=== PATIENT | male | born 1965 | race Caucasian/White ===

== ENCOUNTER 2021-05-05 10:37 | Emergency (ER) | payer OTHER, SELFPAY ==
[2021-05-05 10:42] VITALS: BP 144/92; PULSE 97; O2SAT 98
--- NOTE | 2021-05-05 10:48 | ED_ITS ---
HPI - Overdose General Chief Complaint: ETOH/Substance Use Stated Complaint: OD,NARCAN GIVEN W/GOOD RESULT Time Seen by Provider: 05/05/21 10:48 Source: patient Mode of arrival: EMS Limitations: no limitations History of Present Illness MD complaint: accidental overdose Onset (ago): minute(s) How Overdose Was Discovered: other (was with friends) Context: Accidental Overdose: wanted to get high Associated symptoms: nausea/vomiting Treatments Prior to Arrival: narcan (4mg IN narcan ) Related Data Allergies Allergy/AdvReac Type Severity Reaction Status Date / Time No Known Allergies Allergy Verified 05/05/21 11:07 Review of Systems Review of Systems: Constitutional : No Fever, pos Chills ENT/Mouth : No Ear Pain, No Nasal Congestion, No sore throat Eyes: No Eye Pain, No Swelling, No Redness Cardiovascular : No Chest Pain, No SOB Respiratory : No Cough, No Sputum, No Dyspnea Gastrointestinal :pos Nausea, posVomiting, No Diarrhea, No Hematochezia, No Melena Genitourinary : No Dysuria, No Urinary Frequency, No Hematuria Musculoskeletal : No Myalgias Skin : No Skin Lesions, No rash Neuro : No Weakness, No Numbness, No Paresthesias, No Dizziness, No Headache Psych : positive Anxiety, no Depression, no SI/HI Heme/Lymph: No Lymphadenopathy Endocrine : No Polyuria, No Polydipsia All other systems reviewed and are negative [facility], [facility] Past Medical History Attestation statement: The following information was validated with the patient. Medical History Substance abuse Social History Social History (Updated 05/05/21 @ 11:33 by Rita You DO) Patient Tobacco Use Status: Current someday Tobacco user Substance Use Type: Heroin Advance Directives: No Advance Directives Information Provided: No Physical Exam Vital Signs: Vital Signs: Last Vital Signs Pulse 98 05/05/21 10:53 Resp 16 05/05/21 10:53 BP 125/89 05/05/21 10:53 Pulse Ox 98 05/05/21 10:53 BMI result Body Mass Index 25.0 Appearance: Alert. Oriented X3. No acute distress. Anxious nausea Eyes: Pupils equal, round and reactive to light. ENT: Pharynx normal. Neck: Normal inspection. Neck supple. CVS: Normal heart rate and rhythm. Pulses normal. Respiratory: No respiratory distress. Breath sounds normal. Abdomen: Soft and non-tender. Skin: Skin warm and dry. Normal skin color. Normal skin turgor. Extremities: No lower extremity edema. No calf ttp Neuro: Oriented X 3. No motor deficit. No sensory deficit. Course Course Course Narrative: possible bed at [facility] in [place] signed out pending bed MDM - Overdose MDM Narrative Medical decision making narrative: 56 yo male with opiate abuse from [place] notes he was with friends and was using heroin and accidental overdose - at this time he has no SI, he is calm and cooperative but c/o n/v will give zofran and narcan to take home. He does want to go to detox at this time. Will offer recovery coaches. Discharge Plan Discharge Clinical Impression: Opiate overdose Patient Disposition: Still a Patient Transfer Details: [facility] Instructions: Adult Overdose (ED) Additional Instructions: return to ED for any worsening symptoms or concerns please go to detox
[2021-05-05 10:53] VITALS: BP 125/89; PULSE 98; RESP 16; O2SAT 98; BMI 25.0
[2021-05-05] MEDS: Ondansetron ODT 4 MG TAB.RAPDIS TRANSLINGU (11:25)
[2021-05-05] MEDS: Naloxone HCl Nasal TAKE HOME 4 MG SPRAY NOSTRILALT (11:26)
--- NOTE | 2021-05-05 12:45 | PC.NURSE ---
pt's brother annie ([phone]) and states that he will give pt a ride home. pt is aware.
--- NOTE | 2021-05-05 14:04 | PC.NURSE ---
PT TOLERATING PO INTAKE, NO FURTHER VOMITING, AWAKE AND ALERT NOW.
[2021-05-05 15:56] VITALS: BP 113/55; RESP 18; TEMP 35.7; O2SAT 95
--- NOTE | 2021-05-05 18:54 | MHC.RECOVSUP ---
Spoke with Pt. Her stated that he was suppose to go to a care home in [facility] but miss the opportunity Because he came to [place] . While in [place] he decided to use heroin and overdose .I asked him if he was interested in going to treatment he stated that all he wants is information about detoxes. Gave Pt information and resources.Pt will be pickle cutter by his brother.
--- NOTE | 2021-05-05 19:05 | PC.NURSE ---
PT SPOKE WITH SOFTWARE PROJECT ENGINEER WHO HAS REACHED OUT TO THE PATIENTS FRIEND WHO WILL PICK HIM. HE IS TO FOLLOW UP A HOPE FOR [facility]. PT AGREEABLE. BELONGINGS RETURNED AND DINNER GIVEN FOR DISCHARGE. STEADY GAIT OUT OF THE ED
== END 2021-05-05 19:04 | disposition home or self-care (01) ==
PROVIDERS: Emergency Provider Emergency Medicine
DX: T40.1X1A Poisoning by heroin, accidental (unintentional), initial encounter (principal); Y92.9 Unspecified place or not applicable; R11.2 Nausea with vomiting, unspecified; F11.188 Opioid abuse with other opioid-induced disorder; F19.10 Other psychoactive substance abuse, uncomplicated; F17.200 Nicotine dependence, unspecified, uncomplicated
CPT/HCPCS: 99283; 99284